=== PATIENT | male | born 1950 | race Caucasian/White ===

== ENCOUNTER 2022-03-19 21:44 | Inpatient (IN) | payer MEDICARE, OTHER ==
[~2022-03-19] VITALS: Ht 195.6 cm; Wt 88.4 kg
[~2022-03-19 21:44] MED LIST: ATORVASTATIN CA20 MG PO; LANTUS SOL100 UNIT/1 SUB-Q; ONGLYZA5 MG PO
[2022-03-19] MEDS ORDERED: CARVEDILOL12.5 MG PO (21:53)
[2022-03-19] MEDS ORDERED: LISINOPRIL10 MG PO (21:53)
--- NOTE | 2022-03-20 01:53 | NUR ---
PATIENT TO CCU, TRANSFERED FROM [facility] TO HOSPITAL BED WITH STAFF ASSIST AND SLIDING SHEET. PATIENT AAOX3 TO PERSON, PLACE AND TIME. AT BEDSIDE ANSWERING QUESTIONS. PATIENT IS [place], SAID HEARING AIDS ARE BROKEN AND PATIENT DOES NOT WEAR HIS DENTURES SECONDARY TO WEIGHT LOSS. FULL BODY ASSESMENT DONE, NOTED ABRASIONS FROM RECENT FALL. PATIENT HAD THORACENTESIS PROCEDURE BEFORE ARRIVING BY ED PHYSICIAN, REPORTED 750 ML OF FLUID DRAINED THAT WAS DARK FATOU. CT WAS ALSO DONE BEFORE TRANSFERING TO CCU, RESULTS PENDING. CALL LIGHT WITHIN REACH, PATIENT STATED " I AM SO TIRED" PROVIDED WARM BLANKETS AND EXTRA PILLOWS FOR COMFORT. NO OTHER NEEDS AT THIS TIME.
--- NOTE | 2022-03-20 03:31 | NUR ---
PATIENT USED URINAL IN BED WITH ASSIST. PROVIDED ICE WATER, AND WARM BLANKETS. REPOSITIONED BED FOR PATIENT, AND PROVIDED PILLOW. PATIENT APPEARS TO BE BREATHING EASY WITH EQUAL CHEST RISE. PATIENT TALKING IN CLEAR SENTENCES, ALERT TO PERSON, PLACE, AND TIME. APPEARS TO HAVE IMPROVED STRENGTH FROM ADMISSION, ABLE TO SIT UP FORWARD IN BED. CALL LIGHT WITHIN REACH.
--- NOTE | 2022-03-20 03:59 | NUR ---
PATIENT SITTING UP IN BED WATCHING TELEVISION, DENIES ANY OTHER NEEDS AT THIS TIME. PROIVIDED REMOTE CONTROL.
--- NOTE | 2022-03-20 06:17 | NUR ---
PROVIDED PATIENT WITH FRESH ICE WATER, AND EMPTIED URINAL. PATIENT AWAKE SITTING UP IN BED. LUNG SOUNDS ARE DIMINISHED IN LOWER LOBES MADALYN, UPPER LOBES COURSE AND DIMISHED R>L. PATIENT BREATHING EVEN AND REGULAR. K RIDER INFUSING WELL, IV SITE INTACT. LAB INTO ROOM. PATIENT REPORTS NO PAIN, AND NO OTHER NEEDS AT THIS TIME. FULL BODY ASSESMENT DONE.
--- NOTE | 2022-03-20 07:30 | NUR ---
REPORT RECIEVED, CARE OF PT ASSUMED AT THIS TIME.
[2022-03-20] MEDS ORDERED: TOUJEO SOL300 UNIT/1 SUB-Q (07:55)
--- NOTE | 2022-03-20 08:00 | NUR ---
Spoke with Juanjo. He states he lives in a house with his in [place]. House has 3 steps. He uses a cane. 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 He denies financial issues. Pt plans on dc to home with when cleared medically.
--- NOTE | 2022-03-20 08:37 | NUR ---
IN ROOM FOR ASSESSMENT AND MEDICATION ADMINISTRATION. PT ALERT AND ORIENTED x2. UNSURE OF LOCATION, OR EXACT DATE. LUNG SOUNDS DIMINISHED THROUGHOUT. LITTLE AIRMOVEMENT HEARD ON THE RIGHT SIDE. SPO2 = 94% ON ROOM AIR. PLAN OF CARE FOR DAY ESTABLISHED. CALL LGIHT WITHIN REACH. WILL CONTINUE TO MONITOR.
--- NOTE | 2022-03-20 09:34 | NUR ---
PATIENTS BED REPLACED WITH LONGER ONE DUE TO PATIENTS HEIGHT. VITALS AND I&OS CHARTED. PATIENT USES URINAL AT BEDSIDE. CALL LIGHT IN EASY REACH
--- NOTE | 2022-03-20 10:29 | NUR ---
DR ZALDIVAR IN ROOM WITH PT AT THIS TIME.
[2022-03-20] MEDS ORDERED: ASPIRIN81 MG PO (10:52)
[2022-03-20] MEDS ORDERED: GRAPE SEED50 MG PO (10:53)
[2022-03-20] MEDS ORDERED: GARLIC100 MG PO (10:53)
[2022-03-20] MEDS ORDERED: VITAMIN C500 M5 PO (10:53)
[2022-03-20] MEDS ORDERED: RED YEAST RICE600 MG PO (10:54)
[2022-03-20] MEDS ORDERED: FLAXSEED1000 MG PO (10:54)
--- NOTE | 2022-03-20 11:59 | NUR ---
pt given 1 unit of insulin per sliding scale. Second dose of gastrografin given in juice. Pt does not want to eat lunch. Given an ensure. IV fluids infusing. at bedside. will continue to monitor.
--- NOTE | 2022-03-20 12:25 | NUR ---
REPORT GIVEN TO CHANGE OF ADDRESS CLERK ON MEDICAL FLOOR. PT TRANSPORTED BY [facility] MIKE. ALL BELONGINGS TRANSPORTED WITH PT
--- NOTE | 2022-03-20 12:43 | NUR ---
Pt arrives to med surg unit via hospital bed from CCU. Pt A+O, on RA, VSS. Lungs diminished, pt states SOB with "all the movement of transfering", spo2 98%. Bowel tones active. Pt states last BM 3 days ago. per report pt received oral contrast prior to transfer, will go to imaging at 1300. IV flushed and secured dressing. Skin exam complete, several scattered scabs and bruises to lower extremities, pt states recent falls, uses FWW/cane at home. Oriented to room/call light system.
--- NOTE | 2022-03-20 13:35 | NUR ---
Pt taken for imaging
--- NOTE | 2022-03-20 15:48 | NUR ---
VSS, assessment complete. Pt resting in bed with eyes closed, breathing even and unlabored, awakens to voice. Pt states feeling cold, warm blankets provided and temp adjusted. Pt on RA, no SOB. No needs at this time, call light in reach.
--- NOTE | 2022-03-20 17:24 | NUR ---
Scheduled IVF infusing WNL. Pt drowsy, forgetful to surroundings/date, redirectable. Assisted with repositioning. Pt on room air, reports no SOB, lung sounds diminished throughout. Pt states no needs and says "I'm fine". Call light in reach.
--- NOTE | 2022-03-20 18:11 | NUR ---
PATIENT IN BED RESTING WITH EYES CLOSED. VITALS AND I&O'S CHARTED. CALL LIGHT IN REACH. NO FURTHER NEEDS AT THIS TIME.
--- NOTE | 2022-03-20 20:23 | NUR ---
pt awake, alert to name, slow response, restless, tacheipneic, tried to get oput of bed, used urinal, attrends in place, assessment completed, then took off attends, inc of bowel. ivf infusing RFA, SL LFA patent, coverd wtih juanpablo wrap as he had taken off the coban dressing and was picking at iv sl. instructed. answers to name. unable to follow instructions when repositoning or changing attends. barrier cream applied, skin care, clean gown and clean attends in place, bed alrm on. CBG 132, no coverage needed. call light and fluids at hands reach. edema to LE 2+ sligh pitting on left, elevated. scabbed areas over knees, shins, and R elbow/rash healing.
--- NOTE | 2022-03-20 20:40 | EKG ---
[facility] [address] [facility] [place], [place] [address] Signed Normal sinus rhythm Right bundle branch block Inferior infarct , age undetermined Cannot rule out Anterior infarct , age undetermined Abnormal ECG No previous ECGs available Confirmed by UDAY ZALDIVAR MD ([id number]) on 03/20/2022 8:40:06 PM Electronically Signed By: UDAY ZALDIVAR MD 03/20/222039 PATIENT NAME: BRITTANYSONJA Electrocardiogram DATE OF : 50 PHYSICIAN: UDAY ZALDIVAR MD REPORT #: [id number] REPORT IS CONFIDENTIAL AND NOT TO BE RELEASED WITHOUT AUTHORIZATION
--- NOTE | 2022-03-20 20:40 | EKG ---
[facility] [address] [facility] [place] [address] Signed Sinus rhythm with occasional premature ventricular complexes Right bundle branch block Cannot rule out Inferior infarct (cited on or before 19-MAR-2022) Abnormal ECG When compared with ECG of 19-MAR-2022 21:47, (Unconfirmed) premature ventricular complexes are now present QT has shortened Confirmed by UDAY ZALDIVAR MD ([id number]) on 03/20/2022 8:40:16 PM Electronically Signed By: UDAY ZALDIVAR MD 03/20/222039 PATIENT NAME: SONJA SOTO Electrocardiogram DATE OF : 50 PHYSICIAN: UDAY ZALDIVAR MD REPORT #: [id number] REPORT IS CONFIDENTIAL AND NOT TO BE RELEASED WITHOUT AUTHORIZATION
--- NOTE | 2022-03-20 21:30 | NUR ---
IN THE ROOM ROUNDING. PATIENT HAD BM. THIS CORE DRILLER HELPER AND CORE DRILLER HELPER SHADE IN THE ROOM. PATIENT WAS CLEANED, GOWN PUT ON AND ATTENDS ON. CHANGED WHOLE BED LINEN. BED ALARM ON FOR SAFETY.
--- NOTE | 2022-03-20 23:32 | NUR ---
PT ALMOST OUT OF BED, BED ALARM GOING OFF, NOT FOLLOWING INSTRUCTIONS, SLOW RESPONSE, RESTLESS, UP TO BSC, HAD A BM. SKIN CARE, BACK TO BED, MOVED TO ROOM 120 FALL PRECAUTIONS
--- NOTE | 2022-03-21 00:04 | NUR ---
AWAKE, RESTLESS IN BED, DENIES C.O PAIN AT THIS TIME, IVF INFUSING, FLUIDS AND CALL LIGHT AT HANDSA REACH. BED ALARM ON, MOVED EARLIER FOR CLOSER OBSERVATION ACROSS FROM NURSING STATION. SLOW RESPONSE WHEN DEIRDRE ASKED.
--- NOTE | 2022-03-21 01:04 | NUR ---
patient is back in bed. bed alarm on for safety.
--- NOTE | 2022-03-21 03:30 | NUR ---
restless, not followin directions. on room air, incontinent of urine and bowel, skin care done,whole bed and gown changed, clean attedns in place. bed alarm on.
--- NOTE | 2022-03-21 03:34 | NUR ---
Bed alrm silvia off again several times, tries to get out of bed, explained to him, unstateady, fall precautions. repositioned in bed, unable to follow instructions, then after a few minutes staed "ok,ok", Bed alarm on fluids at bedside
--- NOTE | 2022-03-21 04:07 | NUR ---
bed alarm going off, trying to get out of bed, reorinted and explained to him, semi cooperative. then apologized and repositioned self in bed. hob elevated. bed alarm on, IVF infusing.
--- NOTE | 2022-03-21 05:07 | NUR ---
Pt on room air. lungs dim at bases but clear. has been very restless, requires many cues, slow to process information. SL and IVF site patent. Pt has tolerated fluids well, no emesis, has been incontinent several times of urina and bowel. skin care done, attends in place, whole beddding and gown changes done twice too. Bed aalrm on. slightly unseteady gait, Has been up to BSC and to chair, currently back on bed. Medicated with Tylenol per generalized pain. fluids and call light at hands reach
--- NOTE | 2022-03-21 08:30 | NUR ---
MORNING ASSESSMENT COMPLETE. PT SITTING UP IN RECLINER. CONFUSED, DISORIENTED TO PLACE, TIME, SITUATION. SLOW TO RESPOND, NEEDS REDIRECTION. PT FORGETFUL OF OWN LIMITATIONS. DENIES PAIN AT THIS TIME, FLACC 0. CHAIR ALARM ON. INSTRUCTED PRINTING ESTIMATOR LIGHT USE, WITHIN REACH. PT DENIES NEEDS AT THIS TIME.
--- NOTE | 2022-03-21 09:10 | NUR ---
ASSISTED PT FROM RECLINER TO BSC, PT INCONTIENT OF STOOL AND URINE. PT ASSISTED TO BED, BED ALARM. PT DENIES NEEDS AT THIS TIME. CALL LIGHT IN REACH.
--- NOTE | 2022-03-21 10:00 | NUR ---
Spoke with and she states she is attempting to absorb news of pts cancer. She plans on pt to go home with her. She is awaiting to speak with Dr. Nunez and to have referral to oncology. She states their only need is a walker as he has been using hers and she needs it. Dr. Nunez updated.
--- NOTE | 2022-03-21 11:00 | NUR ---
Spoke with Hope, she denies needs. Reminded [facility] will be here at 1:15 for transport.
--- NOTE | 2022-03-21 12:15 | NUR ---
Received orders and rx from Dr. Nunez. Orders, RX, and dc summary faxed to Kathi at [facility]. Texted to let her know they have been sent.
--- NOTE | 2022-03-21 12:45 | NUR ---
ASSISTED PT TO BSC WITH FWW, BACK TO BED. PT INCONTINENT OF URINE AND STOOL. PT DENIES FURTHER NEEDS AT THIS TIME. RE-ORIENTED TO CALL LIGHT, WITHIN REACH. [facility]
--- NOTE | 2022-03-21 15:40 | NUR ---
REPORT RECEIVED FROM BRANDY EDWARDS. PT RESTING IN BED WITH HEAD OF BED ELEVATED TO 25 DEGREES. PT DENIES PAIN OR NAUSEA. NO REQUESTS OR COMPLAINTS AT THIS TIME. CALL LIGHT WITHIN REACH. BED RAILS UP. BED ALARM ON.
--- NOTE | 2022-03-21 16:09 | NUR ---
AFTERNOON ASSESSMENT DUE. THIS RN TO ROOM. PT CONTINUES RESTING IN BED. PT DENIES PAIN AND NAUSEA. FLACC SCORE OF 0/10. PT RESTLESS IN BED WITH FEET HITTING FOOT BOARD. PT REPOSITIONED AND BOOSTED IN BED, PT MOVES EASILY WITH NO S/S OF PAIN. PT OREINTED TO YEAR AND SELF BUT DISORIENTED TO PLACE. WHEN TOLD HE IS AT THE HOSPITAL PT STATES "WELL, I HAD A BAD DAY. FALLING." PT DOES NOT KNOW MONTH BUT DOES STATE HE IS IN [place]. WEAKNESS NOTED TO ARMS AND LEGS WITH MODERAT NAPHTHA WASHING SYSTEM OPERATOR STRENGTH, PLANTAR AND DORSI FLEXION. PT IS ABLE TO LIFT LEGS OFF THE BED. LEFT LEG WEAKER THAN RIGHT. LUNG SOUNDS CLEAR ALTHOUGH PROMINALTY DECREASED ON RIGHT LOWER LOBE. MERCADO NOTED. OCCATIONAL DRY COUGH NOTED. PT TOELRATING ROOM AIR AT THIS TIME WITH OXYGEN SATURATIONS ABOVE 90%. HEART TONES REGULAR. +1 PITTING EDEMA NOTED TO BLE. PT REPOSITIONS SELF TO RIGHT SIDE. NO ADDITIONAL NEEDS AT THSI TIME. CALL LIGHT WITHIN REACH. BED RAILS UP. BED ALARM ON.
[2022-03-21] MEDS ORDERED: FRONT WHEELED WALKER XX (17:01)
--- NOTE | 2022-03-21 17:06 | NUR ---
BED ALARM SOUNDING. PT ATTMPETING TO GET UP "TO PEE." PT ASSISTED UP TO USE URINAL. TERRENCE CARE DONE. PT REQUESTS TO GET UP TO CHAIR, FINDS IT UNCOMFORTABLE AND REQUESTS TO GET BACK TO BED. 1 PERSON ASSIST WITH FWW FOR ALL ACTIVITY. PT RESTING IN BED WITH BED RAILS UP AND BED ALARM ON. NO ADDITIONAL NEEDS AT THIS TIME. CALL LIGHT WITHIN REACH.
--- NOTE | 2022-03-21 17:09 | NUR ---
PT HERE FOR COMFORT CARES AND ELECTROLYTE IMBALANCES. PT UP WITH ONE PERSON ASSIST AND FWW TO VOID AND MOVE ABOUT IN ROOM. PT TOLERATING 60G CARB DIET WITH MINIMAL APPITITE. SOFT AND BITESIZED TEXTURE ADDED THIS SHIFT. BLOOD SUGARS AND SLIDING SCALE INSULIN DC'D THIS SHIFT AT PT REMAINS WITHIN NORMAL RANGES. PT DENIES PAIN AND NAUSEA WHILE WITH THIS RN. DEMINISHED LUNG SOUNDS CONTINUE IN RIGHT LOWER QUADRANT WITH SHORTNESS OF BREATH AND OCCATIONAL DRY COUGH NOTED. PT REMAINS INCONTINANT OF BOTH URINE AND STOOL. PT MORE ORENTED THIS SHIFT ABLE TO EXPLAIN THAT HE HAS BEEN FALLING, KNOWS YEAR AND REAPEATS BACK INSTRUCTIONS. PT FOLLOWING DIRECTIONS. PT VOIDING QUANTITY SUFFICIENT. PT DOES NOT USE CALL LIGHT, BED ALARM FOR SAFETY.
--- NOTE | 2022-03-21 17:24 | NUR ---
DINNER DELIVERED TO PT. PT TAKING SMALL BITES OF PUDDING AND PASTA WITH HEAD OF BED ELEVATED TO 50 DEGREES. PT REPORTS HE IS DONE AFTER ~4 BITES. dINNER LEFT AT BEDSIDE IN CASE PT CHANGES HIS MIND. PT DENIES PAIN AND NAUSEA. CALL LIGHT WITHIN REACH. BED ALARM ON. BED ARILS UP.
--- NOTE | 2022-03-21 18:04 | NUR ---
PT SETTING OF BED ALARM FREQUENTLY AND APPEARS VERY AGITATED. PT REPORST PAIN IN HIS BACK. PT UNABLE TO QUANTIFY PAIN OR REPORT EXACT LOCATION. FLACC SCORE OF 5/10. SEE MAR FOR MEDCATION GIVEN. PT SWALLOWS MEDICATION WITHOUT S/S OF COUGHING OR THROAT CLEARING. PT UP TO SIT ON EDGE OF BED, PT THEN REPOSITIONS SELF TO LYING FLAT IN BED. THIS RN REMAINS AT BEDSIDE FOR 1:1 OBSERVATION/REASSURANCE.
--- NOTE | 2022-03-21 18:21 | NUR ---
PT AWAKENS FROM RESTING WITH EYES CLOSED. MEDICATION GIVEN. PT SWALLOWS MEDICATIONS WITHOUT ISSUE. VITAL SIGNS STABLE. PT NOTED TO BE MILDY TACHYCARDIC. PT CONTINUES RESTING ON RIGHT SIDE WITH HEAD OF BED ELEVATED TO 5 DEGREES, SUPPORTED WITH PILLOWS. PT NOTED TO BE TRYING TO COVER EYES. ROOM DARKENED. NO ADDITIONAL NEEDS AT THIS TIME. BED ALARM ON. CALL LIGHT WITHIN REACH. ROOM NEAR NURSES STATION.
--- NOTE | 2022-03-21 18:43 | NUR ---
THIS RN TO ROOM TO CHECK ON PT. PT CONTINUES RESTING ON RIGHT SIDE WITH EYES CLOSED. NO ADDITIONAL NEEDS. BED RAILS UP. CALL LIGHT WITHIN REACH. BED ALARM ON.
--- NOTE | 2022-03-21 20:15 | NUR ---
IN WITH RN TO ASSIST PT UP TO THE BSC, LINEN CHANGED DUE TO INCONT, PT CLEANED UP, BACK TO BED, VS TAKEN, NO FURTHER NEEDS AT THIS TIME, BED ALARM IN PLACE
--- NOTE | 2022-03-21 20:23 | NUR ---
PT TRYING TO GET OUT OF BED, RESTLESS, VERY UNSTEAADY WOBBLY GAIT, NOT FOLLOWING INSTRUCTIONS/DIRECTION TOOK SEVERAL CUES, AWARE OF NAME AND BIRTHDAY. ON ROOM AIR, LUNGS DIM AT BASES, SOB WITH EXERTION. WAS INCONTINENT OF BOWEL AND BLADDER, UP TO BSC, BACK TO BED 2PA, COMPLETE BED CHANGE DONE. CLEAN ATTENDS SKIN CARE, RED BUTTOCKS AREA. ARE MID BACK WILL APPLY ALLEVYN. RED CENTERR MOIST, NOT OPEN. DRINKING JUICE AND FLUIDS AWELL, NO COUGH AFTERWARDS. CALL LIGHT AND FLUIDSA T HANDS REACH, IVF INFUING RW. SL LAC PATENT. MULTIPLE BRUISED AREAS OVER ARMS HEALING. BED ALARM ON
--- NOTE | 2022-03-21 21:15 | NUR ---
IN TO ASSIST PT AT BEDSIDE TO SIT UP, PT INCONT VOID AND BM, RN IN TO ASSIST WITH PT BACK TO BED, CLEANED UP, BOOSTED, BED ALARM IN PLACE
--- NOTE | 2022-03-21 21:29 | NUR ---
trying to get out of bed, restless, not following instructions. very stiff LE and unsteady, unable to process information event when up sitting in edge of bed. back to bed. on room air, IVF infusing w/o problems. was incontinent of large amount of soft/seedy bm and urine, skinc are, barrier cream, clean attends and bed changing done. tolerated clear ensure, w/o problems, no cough afterwards. bed alarm on
--- NOTE | 2022-03-21 22:18 | NUR ---
Dr Nunez notified via phone of pt's increased restlessness, aggression, trying to get out of bed, unsteady gait, not following instructions and unable to comprehend situation, pt stating "I want to leave this f... place right now" loud, angry tone of voice. new orders for haloperidaol 0.5mg to 2mg IV Q4H PRN agitation obtained. pts was called too, she will try and come in and sit with pt for a while. Pt back in bed, room air, bed alarm in place
--- NOTE | 2022-03-21 22:37 | NUR ---
BACK IN BED HOB ELEVATED, LUNGS W/O CHANGES. MOANING, MEDICATED WITH TYLENOL 500MG, TOOK LACTULOSE, AND DOCUSATE TAB WELL. JUICE GIVEN. IVF INFUSING W/O PROBLEMS.. REDIRECTABLE WHEN TRYING TO GET OUT OF BED. BED ALARM ON. NURSE IN ROOM WITH PT
--- NOTE | 2022-03-21 22:52 | NUR ---
CONT TO BE VERY RESTLESS, FOLLOWING INSTRUCTIONS, IRRITABLE BUT REDIRECTABLE, REPOSITIONED MULTIPLE TIMES IN BED. MEDICATED WITH HALDOL 0.5MG, SOB NOTED FROM EXERTION. LUNGS CLEAR ON ROOM AIR. ATTENDS IN PLACE, DRY AT THSI TIME. IVF INFUSING. BED ALARM ON. HOB ELEVATED, BED IN CHAIR MODE. RN IN ROOM WITH PT
--- NOTE | 2022-03-21 23:20 | NUR ---
IN TO ASSIST PT UP TO THE BSC, PT IS A 2-3PA PIVOT, BM PRODUCED, BACK TO BED, NO FURTHER NEEDS AT THIS TIME
--- NOTE | 2022-03-21 23:36 | NUR ---
up to BSC his and wifes request. very unsteady, impulsive, had small formed bm plus inc of bm and urine. when wiping noted to have a very hard bm in rectum, pt unable to defecate. back to bed, sob with exertion noted, O2 2L in place, wheezy respirations but lungs clear not wheeze. NIO for dulculax supp done and given. procedure explained and pt was coop. helped with repositioning, scabbed over areas over bilat knee and legs. red raised area over mid back intact, red, pt took allevyn dressing off. hob elevated to comfort. bed alarm on, in room
--- NOTE | 2022-03-21 23:40 | NUR ---
BED ALARM IS IN PLACE, HAS LEFT FOR NIGHT, LET STAFF KNOW SHE HAS THE PTs CELL PHONE FOR SAFE KEEPING AT THIS TIME, NO FURTHER TIME
--- NOTE | 2022-03-22 | NUR ---
ASSISTED ONTO BEDPAN, PT HAD SMALL LIQ/SOFT BM, NEW ATTENDS IN PLACE, BED ALARM IS SET, NO FURTHER NEEDS AT THIS TIME
--- NOTE | 2022-03-22 00:22 | NUR ---
LEFT FOR HOME , PT CALMER, EYES CLOSED, O2 2LNC, BED ALARM ON .HOB ELEVATED
--- NOTE | 2022-03-22 00:45 | NUR ---
BED ALARM SET OFF, PT IS GETTING OOB, 2PA PIVOT TO THE BSC, BACK TO BED, BED ALARM RESUMED
--- NOTE | 2022-03-22 01:19 | NUR ---
Bed alarm going off, pt trying to get out of bed, very drowsy. folling instructions, calmer, O2 2LNC inplace, lungs dim at bases clear uppers, audible wheezing but not on lungs, increased sob with exertion, spot checks sats 95%, R 24, P80. redirectable, back to bed, repositioned back up in bed. cooperative. redness of both elbows and healing of scabbed areas knees and LE, and toes present, purplish looking R mid toes present. LE cold to touch, faint but palpable pulses, edema nonpitting 1+, legs and hob elevated, Bed alarm on IVf infusing, tolerated sips of fluids.
--- NOTE | 2022-03-22 02:10 | NUR ---
more awake, bed alarm going off trying to get out of bed. o2 inplace, lungs no changes, no sob with exertion noted at thist time, more alert and oriented at this time. attends changed, inc of urine and soft bm, skin care. ivf infusing. edema to Le, bruising and scabbed over areas healing. R gry edematous to no changes. LE elevated. Bed alarm on, follows instructions at this time, helped with repositioning
--- NOTE | 2022-03-22 02:15 | NUR ---
BED ALARM SET OFF, PT TRYING TO GET OOB, LOOKING FOR HIS WATER CUP, PROVIDED, PT LAYS BACK IN BED, ALARM RESUMED
--- NOTE | 2022-03-22 03:00 | NUR ---
PT UP TO THE BSC, 2PA PIVOT FWW, BM AND INCONT, BACK TO BED, ALARM IN PLACE
--- NOTE | 2022-03-22 03:39 | NUR ---
bed alarm going off. trying to get off bed, on 2LNC, sob with exertion noted, helped reposition, dry attends. IVF infusing. redness around elbos bilat and around to crease present, unknown cause. red palms noted bilat. bed alarm on. following instructions. awake, quiet
--- NOTE | 2022-03-22 04:01 | NUR ---
AWAKE, ALARM GOING OFF, TRYING TO GET OUT OF BED. RESTLESS. HOB ELEVATED, O2 2L NC IN PLACE, IVF INFUSING
--- NOTE | 2022-03-22 04:17 | NUR ---
PT UP TO BSC, HAS BEEN INCONTINENT OF BOWEL AND BLADDER IN ATTENDS PLU USED BEDPAN. 2PA, UNSTEADY WEAK GAIT, VERY HARD BM NOTED AT RECTUM ENTRANCE, FLEETS ENEMA GIVEN TO HELP W EVACUATION, SMALL HARD BM NOTED WITH WIPING, RED PERIARE AND RECTAL HEMORROIDS NOTED. PT BACK TO BED, O22LNC, SOB WITH EXERTION, REDNESS ARMS ELBOW AREAS AND LOWER EXTREMITEIS, RED/PULLIAM COLORED TOE PRESENT
--- NOTE | 2022-03-22 05:32 | NUR ---
PT INCONT BM, WITH RN CLEANED, BOOSTED, BED ALARM SET, I&Os CONPLETED
--- NOTE | 2022-03-22 06:50 | NUR ---
IN TO GET PT UP TO THE BSC 2PA PIVOT, BACK TO BED, BED ALARM IN PLACE, NO FURTHER NEEDS AT THIS TIME
--- NOTE | 2022-03-22 07:06 | NUR ---
REPORT RECEIVED FROM BRANDY ADAME. PT RETING IN BED AFTER DEPENDS CHANGE. PAMELA SUH, REPORTS PT HAS INCONTINANT URINE AND SMALL SMEAR OF STOOL AND THAT THERE CONTINUES TO BE A HARD LUMP OF STOOL IN RECTUM NOTABLE WITH WIPING. PT REPORTS FEELING "TIRED." PT DENIES PAIN AND NAUSEA. PT RESTING IN BED WITH HEAD OF BED ELEVATED TO 30 DEGREES. BED RAILS UP. CALL LIGHT WITHIN REACH. BED ALARM ON.
--- NOTE | 2022-03-22 07:24 | NUR ---
Faxed face sheet, H&P, progress note, RX for walker to [facility].
--- NOTE | 2022-03-22 07:30 | NUR ---
MORNING ASSESSMENT AND MEDICAITON DUE. PT RESTING IN BED WITH EYES CLOSED, RESPRIATIONS EVEN AND MILDY LABORED, RR OF 24, OPEN MOUTH BREATHING NOTED WITH ABDOMINAL MUSCLE USE AND MILD RETRACTIONS NOTED. PT AWAKENS TO MOVEMENT IN THE ROOM. PT CONTINUES TO DENY PAIN. FLACC SCORE OF 0/10. PT OREINTED TO SELF, AND TOWN. PT VERY DROWSY AND FALLING ASLEEP BETWEEN CARES AND QUESTIONS. PT REPORTS "I DON'T KNOW" WHEN ASKED YEAR, WHERE HE IS AND WHY HE IS AT THE HOSPITAL. PT FOLLOWS DIRECTIONS WHEN AWAKE. STONE CARRIAGE OPERATOR STRENGTHS AND LEG MOVEMENTS REMAIN WEAK. LUNG SOUNDS CLEAR IN UPPER LOBES, DEMINISHED IN BASES BILATERALLY WITH BREATH SOUNDS MORE DEMINISHED ON RIGHT COMPARED TO LEFT. OXGYEN SATURATION 99% ON 2L O2 BY NC. PT WEANED TO ROOM AIR AND MAINTAINS OXYGEN SATURATIONS ABOVE 92%. PT MILDLY TACHYCARDIC WITH HEART RATE IN THE 90'S. HEAR TONES DISTANT. +1 PITTING EDEMA CONTINUES TO BLE WITH PALE FEET NOTED AND AREAS OF DUSKY SKIN NOTED ON BILATERAL LOWER LEGS. HYPOACTIVE BOWEL TONES NOTED. ABDOMEN SOFT AND NON TENDER. WILL CONSIDER AN ADDITIONAL ENEMA ONCE PTS AWAKENS. PT CONTIUES RESTING WITH EYES CLOSED, HEAD OF BED ELEVATED TO 30 DEGREES. BED ALARM ON. CALL LIGHT WITHIN REACH.
--- NOTE | 2022-03-22 08:06 | NUR ---
BED ALARM SOUNDING. PT TRYING TO GET OUT OF BED. PT REPORTS NEED TO VOID AND HAVE BOWEL MOVEMENT. 2 PERSON ASSIST UP TO BEDSIDE COMODE. PT HAS VERY LARGE SOFT BROWN BOWEL MOVEMENT. TERRENCE CARE DONE. DEPENDS CHANGED. HEMMORRIDS NOTED WITH WIPING WITH SCANT AMOUT OF GILDA RED BLOOD SEEN ON WIPES. FRESH DEPENDS IN PLACE. 2 PERSON ASSIST BACK TO BED. PT ENDORSES FEELING MUCH BETTER. PT RESTING WITH EYES CLOSED. BED RAILS UP. CALL LIGHT WITHIN REACH. BED ALARM ON.
--- NOTE | 2022-03-22 09:37 | NUR ---
THIS RN TO ROOM TO CHECK ON PT. PT RESTING IN BED WITH HEAD OF BED ELEVATED TO 30 DEGREES. BREAKFAST AT BEDSIDE. HEAD OF BED ELEVATED TO 45 DEGREES AND PT ASSISTED WITH TAKING A FEW BITES OF BREAKFAST. PT RPEORTS AFTER ~10% OF BREAKFAST THAT HE IS DONE. PT REPORTS BACK PAIN. PT UNABLE TO RATE PAIN, FLACC SCORE OF 5/10. SEE MAR FOR MEDICATION GIVEN. PT RETURNS TO RESTING WITH EYES CLOSED. BED RAILS UP. BED ALARM ON. CALL LIGHT WITHIN REACH.
--- NOTE | 2022-03-22 11:15 | NUR ---
THIS RN TO ROOM TO CHECK ON PT. PT RESTLESS IN BED AND REPORTS NEED TO USE THE RESTROOM. 2 PERSON ASSIST UP TO BED SIDE COMODE. PT HAS ADDITIONAL MEDIUM SOFT BOROWN BOWEL MOVEMENT. ALLEVYN APPLIED OVER BOIL/MASS ON BACK. TERRENCE CARE DONE. PT UP FOR SHOWER. HAIR WASHED, TERRENCE CARE, SKIN CARE. FRESH UNDERWARE AND GOWN APPLIED. HAIR AND ZAPATA COMBED AND WASHED. 2 PERSON ASSIST BACK TO BED. PT RESTING ON RIGHT SIDE, SUPPORED WITH PILLOWS. WARM BLANKETS PROVIDED. BED RAILS UP. CALL LIGHT WITHIN REACH. ICE WATER REFILLED.
--- NOTE | 2022-03-22 12:02 | NUR ---
THIS RN TO ROOM TO CHECK ON PT. PT CONTINUES RESTING ON RIGHT SIDE WITH EYES CLOSED, MARI PROMINANCES SUPPORTED WITH PILLOWS. BED RAILS UP. CALL LIGHT WITHIN REACH. BED ALARM ON. PT ALLOWED TO REST.
--- NOTE | 2022-03-22 13:00 | NUR ---
Called and spoke with . UPdated, walker did not arrive with [employer] delivery. Asked if she would be able to package pick up a walker from [place] for the weekend and [facility] will deliver on Friday or Fri. She states she has found a aluminium ramp for free and they are working on placing it. She has also been working other needs for the home. She plans on visit to the hospital this afternoon.
--- NOTE | 2022-03-22 13:32 | NUR ---
AFTERNOON ASSESSMENT DUE. PT AWAKEN AND RESTING IN BED. PT DENIES PAIN AND NAUSEA. FLACC SCORE OF ZERO. PT MOVES EASILY. PT REPORTS "YEAH, A LITTLE" WHEN ASKED IF HE IS HUNGRY. PT ASSISTED WITH EATING SMALL BITES OF LUNCH, PT EATS ~10% OF LUNCH. VANILLA ENSURE PROVIDED. WHICH PT STATES HE REALLY LIKES. PT DRINKS ALL OF THE ENSURE. IV TO RIGHT WRIST IS LEAKING, NOTED TO BE A FIELD START. IV DC'D PER PROTOCOL, GAUZE AND COBAN APPLIED. IV TO LEFT AC REMAINS WNL. NO S/S OF PHLEBITIS. PT OREINTED TO SELF, FOLLOWING DIRETIONS AND SURROUNDINGS. PT ABLE TO REPORT HE IS IN [place] BUT DOES NOT KNOW WHERE. PT NOW STATES IT IS "[id number]." PT DOES MANAGER BACKGROUND WATER BOTTLE APPROPRIATLY TO DRINK. SILVERWARE BUFFING MACHINE OPERATOR AND LEG MOVEMENTS REMAIN WEAK. LUNG SOUNDS CLEAR BUT VERY DEMINISHED IN RIGHT LOWER LOBE. BREATHING REMAINS MILDLY LABORED WITH MINMAL ACCESSORY MUSCLE AND ABODMEINAL MUSCLE USE NOTED. RR OF 24. OXGYEN SATURATION CONTINUE ABOVE 94%. HEART RATE REMAINS IN 90'S. 2 PERSON ASSIST WITH FWW UP TO BEDSIDE COMODE. PT HAS ADDITIONAL LARGE SOFT BROWN BOWEL MOVEMENT. TERRENCE CARE DONE. BARRIER CREAM APPLIED. DEPENDS SOILED WITH STOOL, CHANGED. 2 PERSON ASSSIT BACK TO BED. PT ON LEFT SIDE FOR A BRIEF TIME BEFORE DECIDING THAT HE IS MORE COMFORTABLE ON HIS RIGHT SIDE. MARI PROMINENCES SUPPORTED WITH PILLOWS. PT DRIFTS BACK TO SLEEP, RR REMAINS 20-24. NO ADDITONAL NEEDS AT THIS TIME. CALL LIGHT WIHTIN REACH. BED RAILS UP. BED ALARMON.
--- NOTE | 2022-03-22 14:33 | NUR ---
THIS RN TO ROOM TO CHECK ON PT. PT CONTINUES RESTING ON RIGHT SIDE. CHANNEL MARKETING MANAGER WORKING WITH PT FOR VITAL SIGNS. PT DENIES REQUESTS OR COMPLAINTS. FLACC SCORE OF ZERO. BED RAILS UP. CALL LIGHT WITHIN REACH. BED ALARM ON.
--- NOTE | 2022-03-22 14:40 | NUR ---
Call from Dr. Nunez, he has spoke with pt and wanting to know if the will be in. Updated I spoke with the by phone earlier and she will be in this afternoon. He states he will call the .
--- NOTE | 2022-03-22 14:45 | NUR ---
PT HERE FOR ELECTROLYTE IMBALANCES. PT UP TO BEDSIDE COMODE AND WITH PHYSICAL THERAPY WITH 1-2 PERSON ASSIST AND FRONT WHEEL WALKER. PT TOLEARTING 60G CARB DIET WITH MINIMAL APPITITE, ENSURE PROVIDED WHICH PT SEEMS TO ENJOY. MULTIPLE VERY LARGE SOFT BOWEL MOVEMENTS NOTED THIS SHIFT. PT CONSISTANTLY ORIENTED ONLY TO SELF AND FOLLOWING DIRECTIONS THIS SHIFT. PT REOREINTED NEEDED. PT DROWSY THIS SHIFT AND SPEINDING MUCH OF HIS TIME SLEEPING ON RIGHT SIDE, SUPPORTED WITH PILLOWS. PT WEANED TO ROOM AIR AND TOLERATING WITH OXGYEN SATURATIONS ABOVE 90%. PRN PAIN MEDICATION GIVEN FOR BACK PAIN AND FLACC SCORE OF 5/10. ALLEVYN APPLIED OVER BOIL/MASS ON BACK. SHOWER THIS SHIFT. PT VOIDING QUANTITY SUFFICIENT. PT DOES NOT USE CALL LIGHT OR MAKE NEEDS KNOWN. BED ALARM FOR SAFETY.
--- NOTE | 2022-03-22 14:54 | NUR ---
PATIENT ADMITTED WITH NUTRITION NOT WITHIN NORMAL LIMITS. HE HAS LOST ~80 LBS INVOLUNTARILY WITHING THE PAST FEW MONTHS PER H&P. NEW DX OF LUNG CA NOTED. PATIENT SLEEPING AT THIS TIME. NO FAMILY IN ROOM EITHER. APPETITE APPEARS POOR SO FAR. THERE IS AN ENSURE HIGH PROTEIN OPENED AT THE BEDSIDE TABLE. WILL TRY TO ASSESS PATIENT AT ANOTHER TIME.
--- NOTE | 2022-03-22 16:10 | NUR ---
PT RESLESS IN BED. THIS NURSE TO BEDSIDE. PT HAD LARGE INCONTINENT BOWEL MOVEMENT. CLEAN PT UP AND ASSISTED SBA WITH FWW TO BATHROOM WHERE PT HAD ANOTHER MEDIUM LOOSE BM. ONCE BACK TO BED PT C/O 9/10 PAIN IN BACK. TYLENOL ADMISNTERED. PT LEFT WITH BED ALARM IN PLACE AND CALL LIGHT IN REACH.
--- NOTE | 2022-03-22 16:20 | NUR ---
THIS RN TO ROOM TO CHECK ON PT. PT RESTING ON RIGHT SIDE WITH EYES CLOSED. RESPIRATIONS EVEN AND UNLABORED. BED RAILS UP. CALL LIGHT WITHIN REACH. PT ALLOWED TO REST. BED ALARM ON.
--- NOTE | 2022-03-22 17:36 | NUR ---
THIS RN TO ROOM TO CHECK ON PT. PT REPORTS NEED TO USE THE RESTROOM. PT UP TO RESTROOM WITH 1 PERSON ASSIST AND FRONT WHEEL WALKER. PT HAS LARGE LOOSE BROWN BOWEL MOVEMENT. TERRENCE CARE DONE. DEPENDS CHANGED. PT UP TO CHAIR FOR DINNER. PT DRINKS AN ENTIRE ENSURE. PT ENDORSES THAT THE ENSURE IS EASIER TO SWALLOW THAN REGULAR FOOD. PT REPORTS BACK PAIN AT 9/10, PT APPEARS MORE ALERT THAN PREVIOUSLY. SEE MAR FOR MEDICATION GIVEN. PT UP TO CHAIR FOR ~10 MINUTES BEFORE WANTING TO GET BACK TO BED. 1 PERSON ASSIST BACK TO BED AND PT BEGINS LEAKING LIQUID BROWN STOOL. PT UP TO RESTROOM. FLOORS CLEANED. PT HAS ADDITONAL LARGE LOOSE/LIQUID BOWEL MOVEMENT. TERRENCE CARE DONE. DEPENDS CHANGED. SOCKS CHANGED. LEGS CLEANED. PT BACK TO BED AND RESTING ON RIGHT SIDE. PT REPORTS FEELING "VERY TIRED." PT DECLINES ADDITIONAL DINNER. PT RESTING WITH EYES CLOSED. BED RAILS UP. CALL LIGHT WITHIN REACH. BED ALARM ON.
--- NOTE | 2022-03-22 20:31 | NUR ---
PATIENT UP TO BATHROOM, STEADY ON FEET WITH FWW. REPOSITIONED PATIENT IN BED. PROVIDED WARM BLANKETS. PATIENT REQUESTED TYLENOL PRN FOR BACK PAIN, RATES PAIN 4/10 ON PAIN SCALE. NOTED AND CHANGED RATE OF IV FLUIDS TO 150 ML/HR. CALL LIGHT WITHIN REACH, BED ALARM ON.
--- NOTE | 2022-03-22 22:46 | NUR ---
PATIENT APPEARS RESLTESS, UP TO RECLINER STBY ASSIST WITH WALKER. PROVIDED WARM BLANKETS. PATIENT COMPLAINED OF HIS BUTT CHEEKS FEELING "ON FIRE" APPLIED CREAM. CALL LIGHT WITHIN REACH.
--- NOTE | 2022-03-22 23:15 | NUR ---
PT BACK INTO BED, HAS BEEN UP IN HIS RECLINER CHAIR FOR APPOX 10 MIN, REQUESTED AND GIVEN PAIN MEDICATION FOR BACK PAIN. BED ALARM IN PLACE, WARM BLANKET PROVIDED. CALL LIGHT WITHIN REACH. LIGHTS OFF.
--- NOTE | 2022-03-23 02:19 | NUR ---
PATIENT UP TO BATHROOM TO VOID. COMPLAINTS OF LOWER BACK PAIN, REQUESTED TYLENOL. VERIFIED PATIENT STILL WITHIN 3GM FOR 24 HOUR PERIOD. ADMINISTERED 500 MG PO. PROVIDED PATIENT WITH HEAT PACK TO LOWER BACK. PATIENT LAYING ON RIGHT SIDE. STATES " THE [employer] WORKS FOR AWHILE THEN IT STARTS HURTING BAD AGAIN".
--- NOTE | 2022-03-23 05:06 | NUR ---
PATIENT APPEARS TO BE RESTING SOUNDLY, EYES CLOSED AND APPEARS CALM.
--- NOTE | 2022-03-23 05:34 | NUR ---
PATIENT UP AT SIDE OF BED, REPORTS BACK PAIN IS BETTER. PROVIDED PATIENT WITH ENSURE AND FRESH ICE WATER. NO OTHER NEEDS AT THIS TIME.
--- NOTE | 2022-03-23 07:20 | NUR ---
REPORT RECEIVED FROM BRANDY PHAN. PT RESTING ON RIGHT SIDE, OPENS EYES TO MOVEMENT IN ROOM. PT REPORTS BACK PAIN IS "FINE" AND INITIALLY DENIES PAIN BUT THEN RATES PAIN AT 7/10. PT DENIES NEED FOR ADDITIONAL PAIN MEDICATION AT THIS TIME. PT DRIFTS BACK TO SLEEP. BED RAILS UP. CALL LIGHT WITHIN REACH. BED ALARM ON.
--- NOTE | 2022-03-23 08:17 | NUR ---
MORNING ASSESSMENT AND MEDICATION DUE. PT UP TO CHAIR. PT REPORTS 6/10 BACK PAIN AND REQUESTS PAIN MEDICATION (SEE MAR FOR MEDICATION GIVEN). PT REQUESTS ENSURE AND BLACK TEA FOR BREAKFAST, PROVIDED REQUESTED. PT TAKES SMALL SIPS AND REQUESTS TO GET BACK TO BED. 1 PERSON ASSIST WITH FWW BACK TO BED. PT POSIIONS SELF ON RIGHT SIDE, PILLOWS USED TO SUPPORT MARI PROMINANCES. HEAT PACK PROVIDED FOR BACK. PT REPORTS THIS POSITION "FEELS BETTER." LUNG SOUNDS REMAIN CLEAR IN UPPER LOBES AND LEFT LOWER LOBE, PRIMANTLY DEMINISHED IN RIGHT LOWER LOBE. ACCESSORY MUSCLE USE NOTED WITH RESPOIRATIONS, RR 24 AND UP TO 32 WITH ACTIVITY. OXGYEN SATURATION OF 92% ON ROOM AIR. HEART TONES REGULAR WITH HEART RATE IN GRAY 90'S. PT ALERT AND OREINTED TO SELF, TOWN, YEAR AND EVENTS OF THEM MORNING. PT DISORINTED TO MONTH, HOSPITAL STAY. PT FOLLOWS DIRECTIONS AND RESPONDS TO QUESTIONS APPROPRIATLY. INSPECTOR AND UNLOADER, PLANTAR AND DORSI FLEXION REMAINS WEAK. TRACE EDEMA NOTED IN BLE. ALLEVYN REMAINS INTACT OVER MASS/BOIL TO BACK, SMALL SPOT OF RED SHADOWING NOTED ON DRESSING. DISCOLORATION TO 2ND TOE OF RIGHT FOOT UNCHANGED. NO ADDITIONAL NEEDS AT THIS TIME. BED RAILSUP. CALL LIGHT WITHIN REACH. BED ALARM ON.
--- NOTE | 2022-03-23 08:45 | NUR ---
PATIENT UP IN CHAIR, AM CARES COMPLETED, CHAIR ALARM ON. NO OTHER NEEDS AT THIS TIME. CALL LIGHT WITHIN REACH.
--- NOTE | 2022-03-23 09:49 | NUR ---
PATIENT LYING IN BED, VITALS AND I/O'S ARE COMPLETED. BED ALARM ON AND NO OTHER NEEDS AT THIS TIME. CALL LIGHT WITHIN REACH.
--- NOTE | 2022-03-23 10:27 | NUR ---
PT FINISHED WITH PHYSICAL THERAPY AND BACK TO ROOM. THIS RN TO ROOM TO CHECK ON PT. PT RESTING ON RIGHT SIDE WITH EYES CLOSED. RR OF 20, EVEN AND MILDY LABORED WITH MILD RETRACTIONS NOTED. PT ALLOWED TO REST, COVERED WITH BLANKETS. CALL LIGHT WITHIN REACH. BED RAILS UP. BED ALARM ACTIVATED.
--- NOTE | 2022-03-23 11:20 | NUR ---
PTS ARRIVED, UPDATED ON PLAN OF CARE AND PT STATUS. PTS VERBALIZES UNDERSTANDING AND STATES HER QUESTIONS HAVE BEEN ANSWERED. PT SITTING ON EDGE OF BED, REPORTS 5/10 BACK PAIN AND REQUESTS ADDITONAL MEDICAITON. PT ALERT AND ORINETED TO PLACE AND EVENTS AT THIS TIME. DR. ZALDIVAR CONSULTED REGARDING ADDITIONAL PAIN MEDICATION. NEW ORDERS ENTERED. AWAITING ARRIVAL OF MEDICATION FROM PHARMACY. NO ADDITIONAL REQUESTS OR COMPLAINTS. CALL LIGHT WIHTIN REACH. BED ALARM ON.
--- NOTE | 2022-03-23 12:14 | NUR ---
PAIN MEDICATION VARIFIED BY PHARMACY. GIVEN ORDERED FOR ONGOING 5/10 PAIN IN BACK. PT RESTING ON RIGHT SIDE IN BED. PT MOVES SELF TO SITTING POSITION. PT SWALLOWS PILL WITHOUT ISSUE. ENSURE PROVIDED AND PT DRINKS ENTIRE ENSURE, PT DECLINES ADDITIONAL ENSURE. PTS REMAINS AT BEDSIDE. NO ADDITIONAL NEEDS AT THIS TIME. CALL LIGHT WIHTIN REACH. BED ALARM ON.
--- NOTE | 2022-03-23 13:00 | NUR ---
PATIENT IN ROOM SITTING ON SIDE OF BED VISITING WITH . PATIENT REFUSED LUNCH BUT TOOK AND ENSURE. HAS NO OTHER NEEDS AT THIS TIME. CALL LIGHT WITHIN REACH.
--- NOTE | 2022-03-23 14:03 | NUR ---
AFTERNOON ASSESSMENT DUE. PT RESTING IN BED ON RIGHT SIDE WITH EYES CLOSED. PT AWAKENS TO VOICE AND LIGHT TOUCH. PT REPORTS 5/10 PAIN CONTINUES IN LOWER BACK. HEAT PACK PROVIDED. PT REQUESTS ADDITIONAL PAIN MEDICATION, SEE MAR FOR MEDICATION GIVEN. PT ORIENTED TO PLACE SELF, EVENTS, AND FOLLOWING DIRECTIONS. PT REMAINS DISORINETED TO DATE STATING IT IS "83" TIME AND SPECIFICS OF SITUATION. PTS AT BEDSIDE AND ATTEPTING TO REORIENT PT. PTS IRRITATED THAT SHE HASN'T SEEN THE DOCTOR YET BECAUSE SHE WANTS TO GO HOME AND TAKE HER PAIN MEDICATION AND "DO MY OWN THING." PTS UPDATED ON PLAN OF CARE AND NEEDS PT WILL HAVE AT HOME, SHE VERBALIES UNDERSTANDING AND CONTINUES TO STATE SHE WOULD LIKE TO TAKE PT HOME AND TAKE CARE OF HIM HERSELF. LUNG SOUNDS REMAIN CLEAR BUT FOR RIGHT LOWER LOBE WHICH IS VERY DIMISHED, ACCESSORY MUSCLE USE CONTINUES. HEART TONES REGULAR, HEART MURMUR HEARD. HEART RATE CONTINUES TO BE IN THE 90'S. +1 EDEMA NOTED TO BILATERAL LOWER EXTREMITIES. RED SHADOWING TO ALLEVYN OVER MASS ON BACK UNCHANGED. SKIN OTHERWISE UNCHANGED. PT CONTINUES RESTING ON RIGHT SIDE. NO ADDITIONAL NEEDS AT THIS TIME. CALL LIGHT WITHIN REACH. BED RAILS UP. BED ALARM ON.
[2022-03-23] MEDS ORDERED: MORPHINE SULFAT15 MG PO (14:54)
--- NOTE | 2022-03-23 15:13 | NUR ---
THIS RN TO ROOM TO CHECK ON PT. PT RESTING ON RIGHT SIDE, AWAKE AND ALERT. PT REPORTS 5/10 BACK PAIN BUT DECLINES ADDITIONAL PAIN MEDICATION. MD TO BEDSIDE FOR ROUNDS. PT AND UPDATED ON PLAN FOR DISCHARGE. PTS GOING HOME TO [facility]. PT DENIES ADDITIONAL REQUESTS OR COMPLAINTS. CALL LIGHT WITHIN REACH. BED RAILS UP. BED ALARM ON.
--- NOTE | 2022-03-23 15:43 | NUR ---
CALL PLACED TO [facility], PTS , REGARDING WHERE THEY WOULD LIKE HOME HEALTH, NO ANSWER AT THIS TIME. AWAITING CALL BACK.
--- NOTE | 2022-03-23 16:25 | NUR ---
THIS RN TO ROOM TO CHECK ON PT. PT SITTING ON EDGE OF BED. ALERT AND ORIENTED TO SELF AND PLACE. PT REORIENTED ON PLAN FOR DISCHAGE. PT REPORTS 7/10 PAIN IN BACK, DECLINES TYELNOL, STATES HE WILL WAIT FOR HIS NEXT DOSE OF PAIN MEDICATION. NO CLEAN CLOTHES AVALIABLE. AWAITING RETURN OF PTS . CHARGE NURSE STATES [facility] RETURNED CALL AND HOME HEALTH REFERAL IS IN PROCESS. PT DENIES ADDITIONAL NEEDS AT THIS TIME. CALL LIGHT WITHIN REACH. BED RAILS UP. BED ALARM ON.
--- NOTE | 2022-03-23 16:31 | NUR ---
Spoke with Patient's who elects to use [facility] after DC.
--- NOTE | 2022-03-23 17:21 | NUR ---
THIS RN TO ROOM TO CHECK ON PT. PT RESTING IN BED ON RIGHT SIDE, NO BLANKETS IN PLACE. PT COVERED WITH BLANKETS. PT AWAKENS WHEN BLANKETS ARE GIVEN. PT UPDATED ON PLAN FOR DISCHARGE. PT VERBALIZES UNDERSTANDING. DINNER DELIVERED. PT DECLINES. PT DENIES ADDITIONAL REQUESTS OR COMPLAINTS. CALL LIGHT WITHIN REACH. BED RAILS UP. BED ALARM ON.
--- NOTE | 2022-03-23 18:12 | NUR ---
PTS ARRIVED WITH CLOTHING AND IS READY TO TAKE PT HOME. PT DRESSED WITH 1 PERSON ASSIST FROM SUPPORTIVE EMPLOYMENT CASE MANAGER. PT UP TO RESTROOM WITH 1 PERSON ASSIST AND FWW FROM . DISCHARGE INSTRUCTIONS REVEIWED WITH PT AND PTS . PT AND VERBALIZE UNDERSTANDING OF MEDICATION CHANGES, PAIN MANAGEMENT, HOME HEALTH AND FOLLOW UP. PT AND REQUEST TO FILL OUT A POLST FORM. DR. ZALDIVAR TO BEDSIDE TO COMPLETE POLST FORM WITH PT AND PTS . PT REPOERTS 8/10 PAIN IN LOWER BACK, SEE MAR FOR MEDICATION GIVEN. PT TRANSFERS SELF TO WHEELCHAIR AND IS WHEELED FROM MED/SURG WITH ALL BELONGINGS. NO ADDITIONAL REQUESTS OR CONCERNS.
--- NOTE | 2022-03-26 10:45 | NUR ---
Chart wi extension faxed to [facility] for HH services at request of pt's .
[2022-03-29] MEDS ORDERED: LISINOPRIL10 MG PO (00:17)
[2022-03-29] MEDS ORDERED: TOUJEO SOL300 UNIT/1 SUB-Q (00:17)
[2022-03-29] MEDS ORDERED: BD ULTRA-FINE1 EAC3 MISC (00:17)
[2022-03-29] MEDS ORDERED: CARVEDILOL12.5 MG PO (00:17)
[2022-03-30] MEDS ORDERED: MORPHINE S100 MG/5 M SL (10:47)
[2022-03-30] MEDS ORDERED: FENTANYL1 EAC4 TD (10:48)
[2022-03-30] MEDS ORDERED: LORAZEPAM1 MG PO (10:49)
== END 2022-03-23 18:25 | disposition home or self-care (01) | DRG 180 ==
LOC: ED 21:44 → CCU 22:57 → MS 03-20 12:25
PROVIDERS: ADMIT Internal Medicine; ATTEND Internal Medicine
DX: C34.12 Malignant neoplasm of upper lobe, left bronchus or lung (principal); G93.41 Metabolic encephalopathy; C34.32 Malignant neoplasm of lower lobe, left bronchus or lung; C78.7 Secondary malignant neoplasm of liver and intrahepatic bile duct; C78.89 Secondary malignant neoplasm of other digestive organs; C79.51 Secondary malignant neoplasm of bone; J91.0 Malignant pleural effusion; E83.52 Hypercalcemia; E87.6 Hypokalemia; E83.42 Hypomagnesemia; Z20.822 Contact with and (suspected) exposure to COVID-19; E11.9 Type 2 diabetes mellitus without complications; D63.1 Anemia in chronic kidney disease; D63.0 Anemia in neoplastic disease; R63.4 Abnormal weight loss; G89.3 Neoplasm related pain (acute) (chronic); Z79.82 Long term (current) use of aspirin; E88.09 Other disorders of plasma-protein metabolism, not elsewhere classified; R63.0 Anorexia; I10 Essential (primary) hypertension; R91.8 Other nonspecific abnormal finding of lung field; R16.0 Hepatomegaly, not elsewhere classified; R16.1 Splenomegaly, not elsewhere classified; M53.3 Sacrococcygeal disorders, not elsewhere classified; E78.00 Pure hypercholesterolemia, unspecified; F17.210 Nicotine dependence, cigarettes, uncomplicated; Z68.23 Body mass index [BMI] 23.0-23.9, adult; R26.89 Other abnormalities of gait and mobility; Z98.890 Other specified postprocedural states; Z88.5 Allergy status to narcotic agent; Z79.899 Other long term (current) drug therapy; Z79.02 Long term (current) use of antithrombotics/antiplatelets; Z79.4 Long term (current) use of insulin
CPT/HCPCS: 32554; 36415; 70470; 71045; 71250; 71260; 74177; 80048; 80053; 81001; 82306; 82652; 83036; 83735; 83970; 85025; 87070; 87075; 87205; 87502; 88112; 88305; 88341; 88342; 88344; 89051; 93005; 93010; 97110; 97116; 97161; 97166; 97535; 99285-25; A9270; J1630; J1650; J1815; J3475; J3480; J3489; J7030; Q9967; U0003